=== PATIENT | male | born 1970 | race African-American/Black ===

== ENCOUNTER 2016-12-24 01:28 | Emergency (ER) | payer BC ==
[2016-12-24 01:56] VITALS: BP 129/51; PULSE 75; TEMP 98.6; BMI 32.3
--- NOTE | 2016-12-24 02:07 | PDOC ---
History of Present Illness - General History Source: Patient Exam Limitations: No Limitations - History of Present Illness Initial Comments: 12/24/16 03:32 The patient is a 46-year-old male with no significant past medical history, and presents to the emergency department with fever, congestion, and migraines for 4 days. The patient reports that the congestion and sinus problems worsened today, and he is experiencing associated rhinorrhea. He reports associated chest pain. He states he has a weak appetite. The patient denies palpitations, shortness of breath, headache and dizziness. The patient denies chills, nausea, vomit, diarrhea and constipation. The patient denies dysuria, frequency, urgency and hematuria. Allergies: NKDA Past Surgical History: None reported. Social History: Denies toxic habits. PCP: Dr. Andrea Hillman <Dacia Bains - Last Filed: 12/24/16 03:31> <Lamar Saucedo - Last Filed: 12/24/16 05:41> - General Chief Complaint: Cold Symptoms Stated Complaint: COLD SYMPTOMS Time Seen by Provider: 12/24/16 02:07 Past History <Dacia Bains - Last Filed: 12/24/16 03:31> - Past Medical History Other medical history: denies - Psycho/Social/Smoking Cessation Hx Anxiety: No Suicidal Ideation: No Smoking Status: No Smoking History: Never smoked Number of Cigarettes Smoked Daily: 0 <Lamar Saucedo - Last Filed: 12/24/16 05:41> - Past Medical History Allergies/Adverse Reactions: Allergies Allergy/AdvReac Type Severity Reaction Status Date / Time No Known Allergies Allergy Verified 12/24/16 01:53 Home Medications: Ambulatory Orders Oseltamivir Phosphate [Tamiflu -] 75 mg PO BID #9 capsule 12/24/16 Pseudoephedrine HCl [Sudafed] 60 mg PO Q8H #30 tablet 12/24/16 Review of Systems - Review of Systems Able to Perform ROS?: Yes Comments:: 12/24/16 03:32 CONSTITUTIONAL: Present: (+) fever, (+) weak appetite Absent: chills, diaphoresis, generalized weakness, malaise HEENT: Present: (+)rhinorrhea, (+) nasal congestion Absent: throat pain, throat swelling, difficulty swallowing, mouth swelling, ear pain, eye pain, visual changes CARDIOVASCULAR: Present: (+) chest pain Absent: syncope, palpitations, irregular heart rate, lightheadedness, peripheral edema RESPIRATORY: Absent: cough, shortness of breath, dyspnea with exertion, orthopnea, wheezing, stridor, hemoptysis GASTROINTESTINAL: Absent: abdominal pain, abdominal distension, nausea, vomiting, diarrhea, constipation, melena, hematochezia GENITOURINARY: Absent: dysuria, frequency, urgency, hesitancy, hematuria, flank pain, genital pain MUSCULOSKELETAL: Absent: myalgia, arthralgia, joint swelling SKIN: Absent: rash, itching, pallor HEMATOLOGIC/IMMUNOLOGIC: Absent: easy bleeding, easy bruising, lymphadenopathy, frequent infections ENDOCRINE: Absent: unexplained weight gain, unexplained weight loss, heat intolerance, cold intolerance NEUROLOGIC: Present: (+) migraines Absent: focal weakness or paresthesias, dizziness, unsteady gait, seizure, mental status changes, bladder or bowel incontinence PSYCHIATRIC: Absent: anxiety, depression, suicidal or homicidal ideation, hallucinations. <Carmita Bainsnda - Last Filed: 12/24/16 03:31> *Physical Exam - Vital Signs Last Vital Signs Temp Pulse Resp BP Pulse Ox 98.6 F 75 18 129/51 98 12/24/16 01:54 12/24/16 01:54 12/24/16 01:54 12/24/16 01:54 12/24/16 01:54 - Physical Exam Comments: 12/24/16 03:32 GENERAL: Well developed, well nourished. Awake and alert. No acute distress. HEENT: Normocephalic, atraumatic. PERRLA, EOMI. No conjunctival pallor. Sclera are non- icteric. Moist mucous membranes. Oropharynx is clear. NECK: Supple. Full ROM. No JVD. Carotid pulses 2+ and symmetric, without bruits. No thyromegaly. No lymphadenopathy. CARDIOVASCULAR: Regular rate and rhythm. No murmurs, rubs, or gallops. Distal pulses are 2+ and symmetric. PULMONARY: No evidence of respiratory distress. Lungs clear to auscultation bilaterally. No wheezing, rales or rhonchi. ABDOMINAL: Soft. Non-tender. Non-distended. No rebound or guarding. No organomegaly. Normoactive bowel sounds. MUSCULOSKELETAL Normal range of motion at all joints. No bony deformities or tenderness. No CVA tenderness. EXTREMITIES: No cyanosis. No clubbing. No edema. No calf tenderness. SKIN: Warm and dry. Normal capillary refill. No rashes. No jaundice. NEUROLOGICAL: Alert, awake, appropriate. Cranial nerves 2-12 intact. No deficits to light touch and temperature in face, upper extremities and lower extremities. No motor deficits in the in face, upper extremities and lower extremities. Normoreflexic in the upper and lower extremities. Normal speech. Toes are down- going bilaterally. Gait is normal without ataxia. PSYCHIATRIC: Cooperative. Good eye contact. Appropriate mood and affect. <Dacia Bains - Last Filed: 12/24/16 03:31> - Vital Signs Last Vital Signs Temp Pulse Resp BP Pulse Ox 98.6 F 75 18 129/51 98 12/24/16 01:54 12/24/16 01:54 12/24/16 01:54 12/24/16 01:54 12/24/16 01:54 <Lamar Saucedo - Last Filed: 12/24/16 05:41> ED Treatment Course - ADDITIONAL ORDERS Additional order review: 12/24/16 02:55 Influenza Types A,B Antigen (RADHA) - Final Nasopharyngeal Swab - Final - Medications Given in the ED: ED Medications Discontinued Medications Generic Name Dose Route Start Last Admin Trade Name Harmanq PRN Reason Stop Dose Admin Oseltamivir Phosphate 75 mg 12/24/16 03:28 12/24/16 03:31 Tamiflu - PO 12/24/16 03:29 75 mg ONCE ONE Administration Pseudoephedrine HCl 60 mg 12/24/16 03:00 12/24/16 03:06 Sudafed - PO 12/24/16 03:01 60 mg ONCE ONE Administration <Dacia Bains - Last Filed: 12/24/16 03:31> Medical Decision Making - Medical Decision Making 12/24/16 03:39 Pt comes with a week of cough and cold and now the cold is unbearable and pt has congestion and feels tired and achy. Pt has influenza on culture. He will be treated with tamiflu and sudafed. Days off from work and follow with PMD. Pt has been able to hydrate and eat plenty of soup[ and he will not require hydration. Stable for discharge. <Lamar Saucedo - Last Filed: 12/24/16 05:41> *DC/Admit/Observation/Transfer - Attestations Scribe Attestion: 12/24/16 03:32 Documentation prepared by Dacia Bains, acting as forensic medical examiner for Lamar Saucedo MD. <Dacia Bains - Last Filed: 12/24/16 03:31> - Discharge Dispostion Admit: No <Lamar Saucedo - Last Filed: 12/24/16 05:41> Diagnosis at time of Disposition: Influenza A - Discharge Dispostion Disposition: HOME Condition at time of disposition: Stable - Prescriptions Prescriptions: Pseudoephedrine HCl [Sudafed] 60 mg PO Q8H #30 tablet Oseltamivir Phosphate [Tamiflu -] 75 mg PO BID #9 capsule - Referrals Referrals: Andrea Hillman MD [Primary Care Provider] - - Patient Instructions Printed Discharge Instructions: Influenza - Post Discharge Activity Work/School Note: Back to Work
[2016-12-24] MEDS ORDERED: PSEUDOEPHEDRINE HCL 60 MG TABLET PO ONE (03:00)
[2016-12-24] MEDS ORDERED: PSEUDOEPHEDRINE HCL 60 MG TABLET ONE (03:05)
[2016-12-24] MEDS ORDERED: OSELTAMIVIR PHOSPHATE 75 MG CAPSULE ONE (03:27)
[2016-12-24] MEDS ORDERED: OSELTAMIVIR PHOSPHATE 75 MG CAPSULE PO ONE (03:28)
== END 2016-12-24 03:37 | disposition home or self-care (01) ==
LOC: JER 01:28
DX: J09.X2 Influenza due to identified novel influenza A virus with other respiratory manifestations (principal)
CPT/HCPCS: 87804; 99282-25